=== PATIENT | male | born 2005 | race Caucasian/White ===

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

== ENCOUNTER 2024-05-19 22:02 | Emergency (ER) | payer OTHER ==
[~2024-05-19] VITALS: Ht 182.9 cm; Wt 78.5 kg
[2024-05-20 03:57] VITALS: BP 128/78; TEMP 97.2; O2SAT 96
[2024-05-20] MEDS: IBUPROFEN 600MG TAB PO ONE (06:52)
== END 2024-05-20 07:10 | disposition home or self-care (01) ==
LOC: M ED 22:02
DX: M94.0 Chondrocostal junction syndrome [Tietze] (principal)